=== PATIENT | female | born 1950 | race Caucasian/White ===

== ENCOUNTER 2017-03-16 05:56 | Inpatient (IN) | payer OTHER ==
[2017-03-05 16:20] LABS: BASOPHILS 0.4 %; BASOPHILS ABSOLUTE 0.03 10/3/uL (0.0-0.16); EOSINOPHILS ABSOLUTE 0.24 10/3/uL (0.0-0.53); HEMATOCRIT 32.5 % (36.0-48.0); HEMOGLOBIN 10.5 g/dL (12.0-16.0); IMMATURE GRANULOCYTES 0.2 %; IMMATURE GRANULOCYTES ABSOLUTE 0.02 10/3/uL (0.0-0.11); LYMPHOCYTES 36.3 %; LYMPHOCYTES ABSOLUTE 2.94 10/3/uL (0.67-4.30); MEAN CORPUS HGB CONC 32.3 g/dL (32.0-36.0); MEAN CORPUSCULAR HEMOGLOB 28.6 pg (26.0-34.0); MEAN CORPUSCULAR VOLUME 88.6 fL (80-100); MEAN PLATELET VOLUME 9.7 fL (9.2-13.0); MONOCYTES 9.8 %; MONOCYTES ABSOLUTE 0.79 10/3/uL (0.21-1.20); NEUTROPHILS 50.3 %; NEUTROPHILS ABSOLUTE 4.08 10/3/uL (2.02-8.40); PLATELET COUNT 588 10/3/uL (150-400); RBC DISTRIBUTION WIDTH 12.9 % (12.0-16.0); RED CELL COUNT 3.67 10/6/uL (4.0-5.6); WHITE BLOOD CELLS 8.1 10/3/uL (4.5-10.5)
[2017-03-05 16:21] LABS: MANUAL DIFF NO %
[2017-03-05 16:25] LABS: INTERNATIONAL NORMAL RATI 1.1 UNITS (-); PROTIME (NOT ORD) 13.7 SEC (12.0-14.5)
[2017-03-05 16:26] LABS: PARTIAL THROMBO TIME 29.4 SEC (22.5-37.2)
[2017-03-05 16:33] LABS: A/G RATIO 0.8 (0.7-1.9); ALBUMIN 3.1 G/DL (3.5-5.0); ALKALINE PHOSPHATASE 86 U/L (45-117); BUN (BLOOD UREA NITROGEN) 12 MG/DL (6-23); CALCIUM, SERUM 8.9 MG/DL (8.5-10.4); CHLORIDE, SERUM 103 MMOL/L (96-112); CO2 (CARBON DIOXIDE) 27 MMOL/L (24-34); CREATININE 0.61 MG/DL (0.55-1.02); GFR AFRICAN AMERICAN 111 ML/MIN (>=60); GFR NON AFRICAN AMERICAN 96 ML/MIN (>=60); GLOBULIN 4.1 G/DL (2.5-4.1); GLUCOSE, SERUM 101 MG/DL (60-99); POTASSIUM, SERUM 3.7 MMOL/L (3.5-5.3); SGOT(AST) 17 U/L (5-40); SGPT(ALT) 25 U/L (5-65); SODIUM, SERUM 138 MMOL/L (135-148); TOTAL BILIRUBIN 0.2 MG/DL (0-1.2); TOTAL PROTEIN 7.2 G/DL (6.0-8.5)
[2017-03-05 16:41] LABS: ASCORBIC ACID (UR NOT ORDER) NEG (NEG); BILIRUBIN, URINE NEGATIVE (NEG); KETONE, URINE NEGATIVE (NEG); LEUKOCYTE ESTERASE(NOT OR NEG (NEG); WBC (NOT ORDERED) (RFLEX) 3 (0-5)
--- NOTE | ~2017-03-16 | OP ---
Record Of Operation [address] [place]. [address] NAME: LETITIA GARRISON : 54 STATUS : ADM IN PAT#: [id number] AGE: 66 ADM/REG DATE : 03/16/17 MR#: [id number] REPORT SERV DATE: 03/16/17 DICTATED BY: JONN PARKER DATE: 03/16/17 REPORT STATUS : Draft TRANSCRIBED BY: MODL DATE: 03/16/17 DATE OF PROCEDURE: 03/16/2017 PREOPERATIVE DIAGNOSIS: Severe inflammatory arthritis of the left knee. POSTOPERATIVE DIAGNOSIS: Severe inflammatory arthritis of the left knee. PROCEDURE: Left total knee arthroplasty. SURGEON: Jonn Parker M.D. SCHEDULING ADMINISTRATOR: Reggie Benitez. ANESTHESIA: General endotracheal. ESTIMATED BLOOD LOSS: 100 mL. COMPLICATIONS: None. DRAINS: ConstaVac x1. TOURNIQUET TIME: Approximately 70 minutes. IMPLANTS: Amauri and Amauri Attune size 6 narrow posterior stabilized left femoral component, size 5 modular tibial tray, with a 6 mm thick posterior stabilized tibial polyethylene insert, and patella was a 35 mm patella. All components were cemented in place with [employer] Simplex bead set bone cement. INDICATIONS FOR SURGERY: Ms. 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 She has had unremitting pain, which has been refractory to medical management. She presents requesting the above-mentioned procedure. Risks of the procedure as detailed in the history and physical, and operative consent were discussed prior to proceeding. She fully understood and has requested to proceed. DESCRIPTION OF PROCEDURE: The patient was brought to the operating room and after induction of anesthesia, was positioned in the supine position. All appropriate pressure points were padded. The operative knee was then prepped and draped in the usual sterile fashion. Time out was performed confirming the appropriate surgical side and site. The leg was exsanguinated with an Víctor wrap and the tourniquet inflated to 350 mmHg pressure. A medial parapatellar approach to the knee was performed. The skin and cutaneous tissues were incised sharply in the midline with a #10 blade. Electrocautery was used as needed to maintain hemostasis. The retinaculum was divided and the extensor mechanism exposed. A median parapatellar arthrotomy was carried out. The medial tibia was exposed subperiosteally and the patellofemoral ligaments divided. The patella was then subluxated laterally and the knee carefully flexed. The knee was Record Of Operation [place] [id number] [facility] [place]. [address] NAME: LETITIA GARRISON : 54 STATUS : ADM IN [facility]#: [id number] AGE: 66 ADM/REG DATE : 03/16/17 MR#: [id number] REPORT SERV DATE: 03/16/17 DICTATED BY: JONN PARKER DATE: 03/16/17 REPORT STATUS : Draft TRANSCRIBED BY: ANTHONY DATE: 03/16/17 debrided of all osteophytes, meniscal remnants in the anterior and posterior cruciate ligaments. Attention was then turned to the distal femur. The intramedullary guide was set at 5 degrees of valgus and secured to the distal femur. The distal femoral resection was then carried out. The femur was then sized to the appropriate block as determined intraoperatively and from templating. The AP cutting block was secured in such a way as to create matched distal and posterior femoral resections in the appropriate rotation. The anterior and posterior femoral cuts were made, chamfer cuts were completed and the box was created for the posterior stabilized femoral component. Attention was then turned to the tibia. The extramedullary alignment guide was set a neutral varus/valgus to match the patient's gulkana posterior tibial slope. The tibia was resected, removing 2 to 3 mm, from the most affected side. The tibial fragment was then removed. Attention was then turned to the posterior aspect of the knee and any remaining posterior femoral osteophytes or meniscal remnants were debrided. The patella was then everted and a uniform resection created taking the thickness of the planned patellar component. The cut was checked with a caliper to be sure of the appropriate resection level. The patella was then finally sized and three holes drilled for an oval domed three peg patella. At this point, the varus/valgus alignment of the knee was accessed. The appropriate releases were performed to balance the knee. A trial reduction was performed. The knee came to a full extension. There was 2 to 3 mm of opening to both varus and valgus stress at 30 and 90 degrees of flexion and normal patellar tracking. At this point, all trial components were removed and the final tibial preparation performed. The bony surfaces were copiously irrigated with normal saline and dried and the final components cemented in place. Once the cement had fully cured, the knee was carefully inspected and all extruded cement fragments were removed. A trial reduction was once again performed. Range of motion and stability of the knee were unchanged. The true tibial insert was then impacted in the clean tibial tray. A drain was placed deep through the arthrotomy and the knee was once again irrigated with pulsatile lavage normal saline. The arthrotomy was repaired using interrupted 1-0 Vicryl suture in a [id number] fashion. The subcutaneous tissues were approximated with interrupted 2-0 Vicryl suture, the skin stapled. A sterile dressing was applied. The tourniquet was deflated and the patient was taken to the Recovery Room in stable condition. POSTOP PLAN: The patient is to be weightbearing as tolerated with physical therapy to be started per total knee arthroplasty protocol. The patient will be on Coumadin and mechanical deep venous thrombosis prophylaxis. NUNU/ANTHONY Jonn Record Of Operation [address] [address] NAME: LETITIA GARRISON : 54 STATUS : ADM IN [facility]#: [id number] AGE: 66 ADM/REG DATE : 03/16/17 MR#: [id number] REPORT SERV DATE: 03/16/17 DICTATED BY: JONN PARKER DATE: 03/16/17 REPORT STATUS : Draft TRANSCRIBED BY: MODL DATE: 03/16/17 Sanket Parker / [id number] CC: Jonn Parker M.D.
[~2017-03-16 05:56] MED LIST: ARAVA20 PO; ASAB PO; CELEXA20 PO; COZ50 PO; DSS PO; HUMIRA SC; LEVOTHYROXIN150 MCG PO; NORCO1 TA1 PO; VITAMIN D1000 UNI1 PO; WELLXL300 PO
[2017-03-17 04:46] LABS: HEMOGLOBIN 8.7 g/dL (12.0-16.0)
[2017-03-17 04:54] LABS: HEMATOCRIT 26.3 % (36.0-48.0)
[2017-03-17 04:56] LABS: INTERNATIONAL NORMAL RATI 1.2 UNITS (-); PROTIME (NOT ORD) 14.9 SEC (12.0-14.5)
[2017-03-17 05:09] LABS: CALCIUM, SERUM 8.1 MG/DL (8.5-10.4); CHLORIDE, SERUM 100 MMOL/L (96-112); CO2 (CARBON DIOXIDE) 23 MMOL/L (24-34); CREATININE 0.49 MG/DL (0.55-1.02); GFR AFRICAN AMERICAN 119 ML/MIN (>=60); GFR NON AFRICAN AMERICAN 103 ML/MIN (>=60); GLUCOSE, SERUM 101 MG/DL (60-99)
[2017-03-17 05:12] LABS: BUN (BLOOD UREA NITROGEN) 8 MG/DL (6-23); SODIUM, SERUM 131 MMOL/L (135-148)
[2017-03-18 05:03] LABS: HEMOGLOBIN 8.2 g/dL (12.0-16.0)
[2017-03-18 05:19] LABS: INTERNATIONAL NORMAL RATI 1.3 UNITS (-); PROTIME (NOT ORD) 16.5 SEC (12.0-14.5)
[2017-03-18] MEDS ORDERED: COUMADIN4 MG PO (10:29)
[2017-03-18] MEDS ORDERED: PCET PO (10:30)
== END 2017-03-18 12:49 | disposition home or self-care (01) | DRG 470 ==
LOC: SDC/OF 05:56 → 3JRC 11:35
PROVIDERS: Specialist
PROC: 3E0T3CZ (ICD-10-PCS; 2017-03-16)
PROC: 0SRD0J9 Replacement of Left Knee Joint with Synthetic Substitute, Cemented, Open Approach (ICD-10-PCS; principal; 2017-03-16 07:45)
DX: M17.12 Unilateral primary osteoarthritis, left knee (principal); D62 Acute posthemorrhagic anemia; I10 Essential (primary) hypertension; M06.9 Rheumatoid arthritis, unspecified; Z79.899 Other long term (current) drug therapy; Z82.49 Family history of ischemic heart disease and other diseases of the circulatory system; Z82.61 Family history of arthritis
CPT/HCPCS: 36415; 71020; 80048; 80053; 81001; 85014; 85018; 85025; 85610; 85730; 86850; 86900; 86901; 86920; 87641; 88305; 88311; 93005; 97110-GP; 97116-GP; 97150-GP; 97161-GP; 97165-GO; A9270-GY; C1776; J0690; J1170; J1885; J2250; J2270; J2405; J2795; J3010